=== PATIENT | male | born 1945 | race Caucasian/White ===

== ENCOUNTER 2021-12-07 10:46 | Outpatient (CLI) | payer MEDICARE, BC ==
[2021-12-07] MEDS ORDERED: Magnevist 469MG/ML 20 ML VIAL ONE (14:16)
== END 2021-12-07 10:47 | disposition home or self-care (01) ==
LOC: CSHMRI 10:46
PROVIDERS: ATTEND Physician Assistant
DX: D49.6 Neoplasm of unspecified behavior of brain (principal)
CPT/HCPCS: 70553; A9579

== ENCOUNTER 2023-03-08 09:25 | Outpatient (CLI) | payer MEDICARE, BC ==
[2023-03-08] MEDS ORDERED: Magnevist 469MG/ML 20 ML VIAL ONE (10:39)
== END 2023-03-08 09:26 | disposition home or self-care (01) ==
LOC: CSHMRI 09:25
PROVIDERS: ATTEND Physician Assistant
DX: D49.6 Neoplasm of unspecified behavior of brain (principal); D32.0 Benign neoplasm of cerebral meninges
CPT/HCPCS: 70553; A9579

== ENCOUNTER 2023-06-18 11:53 | Day surgery (SDC) | payer MEDICARE, BC ==
[~2023-06-18 11:53] MED LIST: PROPOFOL 200 MG/20 ML VIAL ONE
[2023-06-18 12:55] VITALS: BP 164/75; TEMP 98.4
== END 2023-06-18 14:12 | disposition home or self-care (01) ==
LOC: CSHSDC 11:53
PROVIDERS: ATTEND Internal Medicine Cardiovascular Disease
PROC: 5A2204Z Restoration of Cardiac Rhythm, Single (ICD-10-PCS; principal; 2023-06-18)
DX: I48.0 Paroxysmal atrial fibrillation (principal); I65.29 Occlusion and stenosis of unspecified carotid artery; I25.10 Atherosclerotic heart disease of native coronary artery without angina pectoris; E78.5 Hyperlipidemia, unspecified; I10 Essential (primary) hypertension; K21.9 Gastro-esophageal reflux disease without esophagitis; Z90.49 Acquired absence of other specified parts of digestive tract; Z90.89 Acquired absence of other organs; Z95.1 Presence of aortocoronary bypass graft; Z98.49 Cataract extraction status, unspecified eye; Z87.891 Personal history of nicotine dependence; Z88.0 Allergy status to penicillin; Z88.2 Allergy status to sulfonamides; Z88.7 Allergy status to serum and vaccine; Z79.82 Long term (current) use of aspirin; Z79.899 Other long term (current) drug therapy
CPT/HCPCS: 93005; 93010; J2704

== ENCOUNTER 2024-02-28 13:20 | Outpatient (CLI) | payer MEDICARE, BC | END 2024-02-28 13:21 | disposition home or self-care (01) | LOC: CSHRAD 13:20 | PROVIDERS: ATTEND Physician Assistant | DX: J18.9 Pneumonia, unspecified organism (principal) | CPT/HCPCS: 71046 ==